=== PATIENT | female | born 1955 | race Two or more races ===

== ENCOUNTER 2023-09-24 08:46 | Outpatient (CLI) | payer OTHER ==
[2023-09-24 10:26] LABS: CALCIUM 9.6 mg/dL (8.5-10.1); CREATININE SERUM 0.87 mg/dL (0.55-1.02); GFR 64.37; POTASSIUM 5.44 mEq/L (3.5-5.1)
== END 2023-09-24 08:47 | disposition home or self-care (01) ==
LOC: LAB 08:46
DX: I10 Essential (primary) hypertension (principal); E11.9 Type 2 diabetes mellitus without complications

== ENCOUNTER 2023-09-27 09:06 | Outpatient (CLI) | payer OTHER | END 2023-09-27 09:18 | disposition home or self-care (01) | LOC: TOM 09:06 | PROVIDERS: ATTEND Internal Medicine Gastroenterology | DX: R93.3 Abnormal findings on diagnostic imaging of other parts of digestive tract (principal) | CPT/HCPCS: 74177; Q9965 ==